=== PATIENT | female | born 1940 ===

== ENCOUNTER 2019-07-18 11:50 | Emergency (ER) | payer OTHER ==
[~2019-07-18] VITALS: Ht 165.1 cm; Wt 65.3 kg
[~2019-07-18 11:50] MED LIST: COZAAR100 MG PO
== END 2019-07-18 14:55 | disposition home or self-care (01) ==
LOC: ER 11:50
DX: S61.512A Laceration without foreign body of left wrist, initial encounter (principal); L03.114 Cellulitis of left upper limb; W18.09XA Striking against other object with subsequent fall, initial encounter; Y93.89 Activity, other specified; Y92.018 Other place in single-family (private) house as the place of occurrence of the external cause; Y99.8 Other external cause status

== ENCOUNTER → 2019-07-20 14:54 | Outpatient (CLI) | payer OTHER | END | disposition home or self-care (01) | LOC: LAB 14:54 | DX: L02.512 Cutaneous abscess of left hand (principal) ==

== ENCOUNTER 2021-10-02 11:03 | Outpatient (CLI) | payer OTHER | END 2021-10-02 11:05 | disposition home or self-care (01) | LOC: RAD 11:03 | PROVIDERS: ATTEND Internal Medicine Rheumatology | DX: M17.11 Unilateral primary osteoarthritis, right knee (principal); M17.12 Unilateral primary osteoarthritis, left knee ==